=== PATIENT | male | born 1950 | race Caucasian/White ===

== ENCOUNTER 2020-01-26 20:13 | Inpatient (IN) ==
[2020-01-26 21:08] LABS: Basophils % 0.1 %; Hematocrit 35.5 % (37.5-50.1); Hemoglobin 12.3 g/dL (12.9-16.9); Immature Granulocytes % 0.6 % (0-4); Lymphocytes # 0.8 K/mcL (0.6-4.6); Lymphocytes % 5.3 %; Mean Corpuscular HGB Conc 34.6 g/dL (31.6-35.5); Mean Corpuscular Hemoglobin 33.2 pg (28.0-33.3); Mean Corpuscular Volume 95.9 fL (83.0-100.0); Mean Platelet Volume 9.2 fL (9.4-12.4); Monocytes # 1.3 K/mcL (0.0-1.3); Monocytes % 8.2 %; Neutrophils # 13.2 K/mcL (1.6-8.9); Platelet Count 305 K/mcL (140-400); Red Cell Distribution Width 12.9 % (11.5-14.5); Segmented Neutrophils % 85.8 %; White Blood Count 15.4 K/mcL (4.3-11.1)
[2020-01-26 21:11] LABS: INR 1.1
[2020-01-26 21:26] LABS: Albumin 3.9 g/dL (3.5-5.7); Albumin/Globulin Ratio 1.6 (1.1-2.2); Bilirubin,Total 1.2 mg/dL (0.3-1.0); Calcium 8.6 mg/dL (8.6-10.3); Globulin 2.5 g/dL (2.4-3.5); Total Protein 6.4 g/dL (6.4-8.9)
[2020-01-26] MEDS ORDERED: Azithromycin 500 MG in 0.9 % Sodium Chloride 250 ML IVPB ONE (23:31)
[2020-01-26] MEDS ORDERED: cefTRIAXone 1,000 MG in Water for inj. (sterile) 10 ML IVP ONE (23:31)
[2020-01-27 00:04] LABS: Adenovirus Not Detected (Not Detect); Bordetella Pertussis Not Detected (Not Detect); Chlamydophila pneumoniae Not Detected (Not Detect); Coronavirus 229E Not Detected (Not Detect); Coronavirus HKU1 Not Detected (Not Detect); Coronavirus NL63 Not Detected (Not Detect); Coronavirus OC43 Not Detected (Not Detect); Human Metapneumovirus Not Detected (Not Detect); Human Rhinovirus/Enterovirus Not Detected (Not Detect); Influenza A Subtype 2009 H1 Not Detected (Not Detect); Influenza B Not Detected (Not Detect); Mycoplasma pneumoniae Not Detected (Not Detect); Parainfluenza Virus 1 Not Detected (Not Detect); Parainfluenza Virus 2 Not Detected (Not Detect); Parainfluenza Virus 3 Not Detected (Not Detect); Parainfluenza Virus 4 Not Detected (Not Detect); Respiratory Syncytial Virus Not Detected (Not Detect); SARS-CoV-2 Not Detected (Not Detect)
[2020-01-27] MEDS ORDERED: Acetaminophen 325 MG TABLET PO PRN (00:58)
[2020-01-27] MEDS ORDERED: Naloxone 0.4 MG/ML INJ IVP PRN ×2 (00:58→19:52)
[2020-01-27] MEDS ORDERED: Ondansetron ODT 4 MG TAB.RAPDIS SL PRN ×2 (00:58→19:52)
[2020-01-27] MEDS ORDERED: 0.9 % Sodium Chloride 1,000 ML IVC SCH ×2 (01:00→19:52)
[2020-01-27] MEDS ORDERED: *HR* HYDROmorphone (PF) 1 MG/ML SYRINGE IVP PRN ×2 (01:04→19:52)
[2020-01-27 02:21] LABS: Basophils % 0.2 %; Hematocrit 31.6 % (37.5-50.1); Hemoglobin 10.8 g/dL (12.9-16.9); Immature Granulocytes % 0.5 % (0-4); Lymphocytes # 1.2 K/mcL (0.6-4.6); Lymphocytes % 9.1 %; Mean Corpuscular HGB Conc 34.2 g/dL (31.6-35.5); Mean Corpuscular Hemoglobin 32.9 pg (28.0-33.3); Mean Corpuscular Volume 96.3 fL (83.0-100.0); Mean Platelet Volume 9.2 fL (9.4-12.4); Monocytes # 1.5 K/mcL (0.0-1.3); Monocytes % 11.6 %; Platelet Count 269 K/mcL (140-400); Red Blood Count 3.28 M/mcL (4.19-5.50); Red Cell Distribution Width 12.9 % (11.5-14.5); Segmented Neutrophils % 78.6 %; White Blood Count 12.7 K/mcL (4.3-11.1)
[2020-01-27 02:27] LABS: INR 1.2; Prothrombin Time 13.5 Seconds (9.4-12.1)
[2020-01-27 02:41] LABS: Calcium 8.3 mg/dL (8.6-10.3); Magnesium 1.6 mg/dL (1.6-2.6); Phosphorous 3.1 mg/dL (2.7-4.5); Potassium 3.7 mEq/L (3.5-5.1)
[2020-01-27] MEDS: Ipratropium/Albuterol Neb 3 ML IH SCH ×5 (06:31→20:26)
[2020-01-27] MEDS ORDERED: Azithromycin 500 MG in 0.9 % Sodium Chloride 250 ML IVPB SCH (09:00)
[2020-01-27] MEDS ORDERED: amLODIPine 5 MG TABLET PO SCH (09:00)
[2020-01-27] MEDS ORDERED: NON-FORMULARY MEDICATION 1 EACH EACH (Amlodipine Besylate 10 MG) PO SCH (09:00)
[2020-01-27] MEDS ORDERED: Metoprolol XL (24 HR) Succ 50 MG TAB.ER.24H PO SCH (09:00)
[2020-01-27] MEDS ORDERED: cefTRIAXone 1,000 MG in 0.9 % Sodium Chloride Mini Bag 100 ML IVPB SCH (09:00)
[2020-01-27] MEDS ORDERED: *HR* LORazepam 2 MG/ML VIAL IVP ONE (09:49)
[2020-01-27] MEDS ORDERED: Lidocaine -MPF 2% 2 ML VIAL ONE (16:32)
[2020-01-27] MEDS ORDERED: Ondansetron 4 MG/2 ML VIAL ONE (16:32)
[2020-01-27] MEDS ORDERED: Dexamethasone 4 MG/ML VIAL ONE (16:32)
[2020-01-27] MEDS ORDERED: *HR* Propofol 200 MG/20 ML VIAL IVP ONE (16:32)
[2020-01-27] MEDS ORDERED: *HR* FentaNYL (PF) 100 MCG/2 ML VIAL ONE ×2 (16:32→17:56)
[2020-01-27] MEDS ORDERED: Famotidine 20 MG/2 ML VIAL ONE (16:58)
[2020-01-27] MEDS ORDERED: Acetaminophen IV 1,000 MG/100 ML INFUS..BTL ONE (16:58)
[2020-01-27] MEDS ORDERED: EPHEDrine 50 MG/ML VIAL ONE (17:38)
[2020-01-27] MEDS ORDERED: *HR* PHENYLEPHRINE 1,000 MCG/10 ML SYRINGE IVP ONE (18:02)
[2020-01-27] MEDS ORDERED: *HR* HYDROMORPHONE 2 MG/ML VIAL ONE (18:03)
[2020-01-28] MEDS: CeFAZolin 2 GM/120 ML BAG IVPB SCH ×2 (00:21→08:59)
[2020-01-28] MEDS: Ipratropium/Albuterol Neb 3 ML IH SCH ×8 (00:22→23:20)
[2020-01-28 03:39] LABS: Hematocrit 28.6 % (37.5-50.1); Hemoglobin 9.5 g/dL (12.9-16.9); Mean Corpuscular HGB Conc 33.2 g/dL (31.6-35.5); Mean Corpuscular Hemoglobin 32.5 pg (28.0-33.3); Mean Corpuscular Volume 97.9 fL (83.0-100.0); Mean Platelet Volume 9.4 fL (9.4-12.4); Platelet Count 232 K/mcL (140-400); Red Blood Count 2.92 M/mcL (4.19-5.50); Red Cell Distribution Width 13.1 % (11.5-14.5); White Blood Count 11.6 K/mcL (4.3-11.1)
[2020-01-28 03:59] LABS: BUN/Creatinine Ratio 17 (6-26); Blood Urea Nitrogen 23 mg/dL (8-23); Calcium 8.2 mg/dL (8.6-10.3); Carbon Dioxide 17 mEq/L (23-29); Chloride 105 mEq/L (98-107); Glucose 318 mg/dL (70-105); Magnesium 1.6 mg/dL (1.6-2.6); Osmolality,Calculated 288 (280-300); Potassium 3.6 mEq/L (3.5-5.1); Sodium 131 mEq/L (136-145); eGFR For African Americans > 60 (> 60); eGFR For Non-African Americans 53 (> 60)
[2020-01-28] MEDS ORDERED: *HR* Dextrose 50 % in Water (Vial) 50 ML VIAL IVP PRN (06:58)
[2020-01-28] MEDS ORDERED: Dextrose Gel 15 GM/37.5 ML TUBE PO PRN ×2 (06:58)
[2020-01-28] MEDS ORDERED: D5% in Water 1,000 ML IVC PRN (06:58)
[2020-01-28] MEDS ORDERED: GlipiZIDE 5 MG TABLET PO SCH (08:00)
[2020-01-28] MEDS: cefTRIAXone 1,000 MG in 0.9 % Sodium Chloride Mini Bag 100 ML IVPB SCH (08:59)
[2020-01-28] MEDS ORDERED: Azithromycin 500 MG in 0.9 % Sodium Chloride 250 ML IVPB SCH (09:00)
[2020-01-28] MEDS: amLODIPine 5 MG TABLET PO SCH (09:01)
[2020-01-28] MEDS: Metoprolol XL (24 HR) Succ 50 MG TAB.ER.24H PO SCH (09:02)
[2020-01-28] MEDS: Insulin LISPRO 300 UNITS/3 ML VIAL SQ SCH ×4 (09:07→23:14)
[2020-01-28] MEDS: Haloperidol Lactate 5 MG/ML VIAL IVP ONE (14:47)
[2020-01-28] MEDS ORDERED: Insulin DETEMIR 100 UNIT/ML X5UNITS SQ SCH (21:00)
[2020-01-28] MEDS: Acetaminophen 325 MG TABLET PO PRN (23:13)
[2020-01-29] MEDS ORDERED: 0.9 % Sodium Chloride 500 ML IVC ONE (02:08)
[2020-01-29] MEDS: Ipratropium/Albuterol Neb 3 ML IH SCH ×6 (03:21→20:25)
[2020-01-29 09:24] LABS: Basophils % 0.1 %; Eosinophils % 0.1 %; Hematocrit 26.8 % (37.5-50.1); Immature Granulocytes % 0.8 % (0-4); Lymphocytes # 2.1 K/mcL (0.6-4.6); Mean Corpuscular HGB Conc 33.6 g/dL (31.6-35.5); Mean Corpuscular Hemoglobin 33.3 pg (28.0-33.3); Mean Corpuscular Volume 99.3 fL (83.0-100.0); Mean Platelet Volume 9.4 fL (9.4-12.4); Monocytes # 1.4 K/mcL (0.0-1.3); Monocytes % 8.9 %; Neutrophils # 11.5 K/mcL (1.6-8.9); Platelet Count 267 K/mcL (140-400); Red Cell Distribution Width 13.5 % (11.5-14.5); Segmented Neutrophils % 76.1 %; White Blood Count 15.1 K/mcL (4.3-11.1)
[2020-01-29 09:37] LABS: BUN/Creatinine Ratio 20 (6-26); Blood Urea Nitrogen 27 mg/dL (8-23); Calcium 8.3 mg/dL (8.6-10.3); Carbon Dioxide 20 mEq/L (23-29); Chloride 106 mEq/L (98-107); Glucose 132 mg/dL (70-105); Magnesium 1.8 mg/dL (1.6-2.6); Osmolality,Calculated 287 (280-300); Potassium 3.6 mEq/L (3.5-5.1); Sodium 135 mEq/L (136-145); eGFR For African Americans > 60 (> 60); eGFR For Non-African Americans 53 (> 60)
[2020-01-29] MEDS: cefTRIAXone 1,000 MG in 0.9 % Sodium Chloride Mini Bag 100 ML IVPB SCH (10:11)
[2020-01-29] MEDS: amLODIPine 5 MG TABLET PO SCH (10:12)
[2020-01-29] MEDS: Metoprolol XL (24 HR) Succ 50 MG TAB.ER.24H PO SCH (10:12)
[2020-01-29] MEDS: Insulin LISPRO 300 UNITS/3 ML VIAL SQ SCH ×4 (10:25→21:05)
[2020-01-29] MEDS ORDERED: *HR* Digoxin 0.5 MG/2 ML AMPUL IVP ONE (11:52)
[2020-01-29] MEDS ORDERED: Haloperidol Lactate 5 MG/ML VIAL IVP ONE (14:56)
[2020-01-29] MEDS: *HR* Metoprolol 5 MG/5 ML VIAL IVP PRN (17:38)
[2020-01-29] MEDS: Haloperidol Lactate 5 MG/ML VIAL IVP ONE (17:40)
[2020-01-30] MEDS: Ipratropium/Albuterol Neb 3 ML IH SCH ×6 (00:42→19:57)
[2020-01-30] MEDS: *HR* Metoprolol 5 MG/5 ML VIAL IVP PRN ×2 (01:07→09:20)
[2020-01-30 04:15] LABS: Basophils % 0.3 %; Eosinophils # 0.1 K/mcL (0.0-0.6); Eosinophils % 0.8 %; Hematocrit 26.2 % (37.5-50.1); Hemoglobin 8.9 g/dL (12.9-16.9); Lymphocytes # 2.6 K/mcL (0.6-4.6); Lymphocytes % 22.1 %; Mean Corpuscular Hemoglobin 33.5 pg (28.0-33.3); Mean Corpuscular Volume 98.5 fL (83.0-100.0); Mean Platelet Volume 9.3 fL (9.4-12.4); Monocytes % 8.8 %; Neutrophils # 7.8 K/mcL (1.6-8.9); Platelet Count 263 K/mcL (140-400); Red Blood Count 2.66 M/mcL (4.19-5.50); Red Cell Distribution Width 13.3 % (11.5-14.5); White Blood Count 11.7 K/mcL (4.3-11.1)
[2020-01-30 04:32] LABS: BUN/Creatinine Ratio 20 (6-26); Blood Urea Nitrogen 24 mg/dL (8-23); Calcium 7.7 mg/dL (8.6-10.3); Carbon Dioxide 20 mEq/L (23-29); Chloride 104 mEq/L (98-107); Glucose 175 mg/dL (70-105); Magnesium 1.7 mg/dL (1.6-2.6); Osmolality,Calculated 282 (280-300); Phosphorous 2.6 mg/dL (2.7-4.5); Potassium 3.8 mEq/L (3.5-5.1); Sodium 132 mEq/L (136-145); eGFR For African Americans > 60 (> 60); eGFR For Non-African Americans 58 (> 60)
[2020-01-30] MEDS ORDERED: *HR* Metoprolol 5 MG/5 ML VIAL IVP ONE (05:18)
[2020-01-30] MEDS: cefTRIAXone 1,000 MG in 0.9 % Sodium Chloride Mini Bag 100 ML IVPB SCH (08:21)
[2020-01-30] MEDS: Metoprolol XL (24 HR) Succ 50 MG TAB.ER.24H PO SCH (08:22)
[2020-01-30] MEDS: Insulin LISPRO 300 UNITS/3 ML VIAL SQ SCH ×4 (08:23→22:36)
[2020-01-30 10:47] LABS: Estimated Average Glucose 192 mg/dl
[2020-01-30] MEDS ORDERED: DilTIAZem CD (24hr) 120 MG CAP.ER.24H PO ONE (11:12)
[2020-01-30] MEDS: Nicotine 21 MG PATCH.TD24 TD SCH (13:30)
[2020-01-30] MEDS ORDERED: Haloperidol Lactate 5 MG/ML VIAL IVP ONE (14:33)
[2020-01-30] MEDS: Acetaminophen 325 MG TABLET PO PRN (17:19)
[2020-01-30] MEDS: Aspirin Enteric Coated 325 MG Tablet PO SCH (22:44)
[2020-01-31] MEDS: Ipratropium/Albuterol Neb 3 ML IH SCH ×4 (00:14→11:18)
[2020-01-31] MEDS: Aspirin Enteric Coated 325 MG Tablet PO SCH (09:12)
[2020-01-31] MEDS: Metoprolol XL (24 HR) Succ 50 MG TAB.ER.24H PO SCH (09:13)
[2020-01-31] MEDS: Nicotine 21 MG PATCH.TD24 TD SCH (09:13)
[2020-01-31] MEDS: Insulin LISPRO 300 UNITS/3 ML VIAL SQ SCH (09:17)
[2020-01-31 11:11] VITALS: BP 105/71
== END 2020-01-31 11:45 | disposition home health service (06) | DRG 853 ==
LOC: 3NENU 20:13 → EMEROOARM 20:13 → SUATTDRO 23:52 → 3NENU 01-27 00:40 → SUATTDRO 01-27 14:41
PROVIDERS: ADMIT Internal Medicine; ATTEND Internal Medicine

== ENCOUNTER 2021-11-01 15:27 | Inpatient (IN) ==
[2021-11-01] MEDS ORDERED: 0.9 % Sodium Chloride 500 ML IVC ONE (15:47)
[2021-11-01 16:27] LABS: Basophils % 0.2 %; Eosinophils % 0.1 %; Hematocrit 30.2 % (37.5-50.1); Lymphocytes % 4.8 %; Mean Corpuscular HGB Conc 36.4 g/dL (31.6-35.5); Mean Corpuscular Hemoglobin 34.7 pg (28.0-33.3); Mean Corpuscular Volume 95.3 fL (83.0-100.0); Mean Platelet Volume 8.7 fL (9.4-12.4); Monocytes # 1.4 K/mcL (0.0-1.3); Monocytes % 6.5 %; Neutrophils # 18.8 K/mcL (1.6-8.9); Platelet Count 308 K/mcL (140-400); Red Blood Count 3.17 M/mcL (4.19-5.50); Red Cell Distribution Width 12.6 % (11.5-14.5); Segmented Neutrophils % 87.4 %; White Blood Count 21.5 K/mcL (4.3-11.1)
[2021-11-01 16:38] LABS: INR 1.3
[2021-11-01 16:55] LABS: BUN/Creatinine Ratio 16 (6-26); Blood Urea Nitrogen 21 mg/dL (8-23); Calcium 8.7 mg/dL (8.6-10.3); Carbon Dioxide 20 mEq/L (23-29); Chloride 96 mEq/L (98-107); Glucose 224 mg/dL (70-105); Osmolality,Calculated 268 (280-300); Potassium 4.5 mEq/L (3.5-5.1); Sodium 124 mEq/L (136-145); Troponin I < 0.03 ng/mL (< 0.04)
[2021-11-01] MEDS ORDERED: Ondansetron 4 MG/2 ML VIAL IVP PRN (17:28)
[2021-11-01] MEDS ORDERED: Naloxone 0.4 MG/ML INJ IVP PRN (17:28)
[2021-11-01] MEDS ORDERED: Acetaminophen 325 MG TABLET PO PRN (17:28)
[2021-11-01] MEDS ORDERED: *HR* HYDROcodone/Acet 5/325 mg TABLET PO PRN (17:28)
[2021-11-01] MEDS ORDERED: D5% in Water 1,000 ML IVC PRN (17:32)
[2021-11-01] MEDS ORDERED: *HR* Dextrose 50 % in Water (Syg) 50 ML SYRINGE IVP PRN (17:32)
[2021-11-01] MEDS ORDERED: Dextrose Gel 15 GM/37.5 ML TUBE PO PRN ×2 (17:32)
[2021-11-01 18:01] LABS: Bilirubin,Urine Negative (Negative); Blood,Urine Negative (Negative); Clarity,Urine Clear (Clear); Color,Urine Yellow (Yellow); Glucose,Urine (UA) >=1000 mg/dL (Normal); Hyaline Casts,Urine Few per lpf (None Seen); Ketones,Urine Negative (Negative); Leukocyte Esterase,Urine Negative (Negative); Mucus,Urine Few per lpf (None-Few); Nitrite,Urine Negative (Negative); PH,Urine 6.5 pH Units (5.0-8.0); Protein,Urine 50 mg/dL (Neg-Trace); RBC,Urine 0-3 per hpf (0-3); Specific Gravity,Urine 1.014 (1.010-1.025); Urobilinogen,Urine Normal (Normal); WBC,Urine 0-3 per hpf (0-3)
[2021-11-01] MEDS: Insulin LISPRO 300 UNITS/3 ML VIAL SUBQ SCH ×2 (22:27→23:34)
[2021-11-02 06:38] LABS: Basophils % 0.1 %; Hematocrit 27.6 % (37.5-50.1); Hemoglobin 9.9 g/dL (12.9-16.9); Immature Granulocytes % 0.7 % (0-4); Lymphocytes # 1.5 K/mcL (0.6-4.6); Lymphocytes % 9.5 %; Mean Corpuscular HGB Conc 35.9 g/dL (31.6-35.5); Mean Corpuscular Hemoglobin 34.1 pg (28.0-33.3); Mean Corpuscular Volume 95.2 fL (83.0-100.0); Monocytes # 1.7 K/mcL (0.0-1.3); Monocytes % 10.6 %; Neutrophils # 12.8 K/mcL (1.6-8.9); Platelet Count 257 K/mcL (140-400); Red Cell Distribution Width 12.7 % (11.5-14.5); Segmented Neutrophils % 79.1 %; White Blood Count 16.2 K/mcL (4.3-11.1)
[2021-11-02 07:12] LABS: Calcium 8.6 mg/dL (8.6-10.3); Magnesium 1.1 mg/dL (1.6-2.6); Potassium 4.3 mEq/L (3.5-5.1)
[2021-11-02] MEDS: Insulin LISPRO 300 UNITS/3 ML VIAL SUBQ SCH ×4 (08:56→21:44)
[2021-11-02] MEDS ORDERED: CeFAZolin Syr 2,000MG/20 ML 2,000 MG/20 ML SYRINGE IVPB ONE (10:30)
[2021-11-02] MEDS: 0.9 % Sodium Chloride 1,000 ML IVC SCH (10:52)
[2021-11-02 12:01] LABS: Estimated Average Glucose 154 mg/dl
[2021-11-02] MEDS ORDERED: *HR* HYDROmorphone PF 0.5 MG/0.5 ML SYRINGE IVP PRN (12:05)
[2021-11-02] MEDS ORDERED: Albuterol 2.5 MG/3 ML NEBULIZER IH PRN (12:05)
[2021-11-02] MEDS ORDERED: Ondansetron 4 MG/2 ML VIAL IVP PRN (12:05)
[2021-11-02] MEDS ORDERED: *HR* FentaNYL (PF) 100 MCG/2 ML VIAL IVP PRN (12:05)
[2021-11-02] MEDS ORDERED: Albuterol 2.5 MG/3 ML NEBULIZER IH ONE (12:11)
[2021-11-02] MEDS ORDERED: Ropivacaine/PF 0.5% 30 ML VIAL ONE (12:11)
[2021-11-02] MEDS ORDERED: *HR* FentaNYL (PF) 100 MCG/2 ML VIAL ONE ×2 (12:12→12:49)
[2021-11-02] MEDS ORDERED: *HR* Propofol 200 MG/20 ML VIAL IVP ONE (12:49)
[2021-11-02] MEDS ORDERED: Ondansetron 4 MG/2 ML VIAL ONE (12:49)
[2021-11-02] MEDS ORDERED: Lidocaine -MPF 2% 5 ML VIAL ONE (12:49)
[2021-11-02] MEDS ORDERED: EPHEDrine 50 MG/ML VIAL ONE (13:22)
[2021-11-02] MEDS ORDERED: *HR* Vasopressin 20 UNIT/ML VIAL ONE (13:29)
[2021-11-02] MEDS ORDERED: *HR* Metoprolol 5 MG/5 ML VIAL IVP PRN ×2 (15:03→16:00)
[2021-11-02] MEDS ORDERED: ceFAZolin 1,000 MG in Water for inj. (sterile) 10 ML IVP SCH (16:00)
[2021-11-02] MEDS: Apixaban 5 MG TABLET PO SCH (21:42)
[2021-11-02] MEDS: Insulin DETEMIR 100 UNIT/ML X5UNITS SUBQ SCH (21:43)
[2021-11-03] MEDS: *HR* Water for inj. (sterile) Vial 10 ML IM SCH ×3 (04:22→21:57)
[2021-11-03] MEDS ORDERED: *HR* LORazepam 2 MG/ML VIAL IM STA (05:19)
[2021-11-03 05:50] LABS: Basophils % 0.1 %; Hematocrit 22.5 % (37.5-50.1); Immature Granulocytes % 0.6 % (0-4); Lymphocytes # 0.9 K/mcL (0.6-4.6); Lymphocytes % 5.3 %; Mean Corpuscular HGB Conc 35.1 g/dL (31.6-35.5); Mean Corpuscular Hemoglobin 33.9 pg (28.0-33.3); Mean Corpuscular Volume 96.6 fL (83.0-100.0); Mean Platelet Volume 9.2 fL (9.4-12.4); Monocytes # 1.9 K/mcL (0.0-1.3); Neutrophils # 13.3 K/mcL (1.6-8.9); Platelet Count 236 K/mcL (140-400); Red Blood Count 2.33 M/mcL (4.19-5.50); Red Cell Distribution Width 12.9 % (11.5-14.5); White Blood Count 16.2 K/mcL (4.3-11.1)
[2021-11-03 05:51] LABS: Hemoglobin 7.9 g/dL (12.9-16.9)
[2021-11-03 06:11] LABS: Calcium 8.3 mg/dL (8.6-10.3); Potassium 4.1 mEq/L (3.5-5.1)
[2021-11-03] MEDS ORDERED: Ringers Solution, Lactated 500 ML IVC ONE (06:15)
[2021-11-03 06:26] LABS: Magnesium 1.6 mg/dL (1.6-2.6)
[2021-11-03] MEDS ORDERED: Metoprolol XL (24 HR) Succ 50 MG TAB.ER.24H PO SCH (09:00)
[2021-11-03] MEDS: Apixaban 5 MG TABLET PO SCH ×2 (09:02→23:17)
[2021-11-03] MEDS: amLODIPine 5 MG TABLET PO SCH (09:04)
[2021-11-03] MEDS: Cholecalciferol (D-3) 1,000 UNIT (25MCG) TABLET PO SCH (09:05)
[2021-11-03] MEDS: Insulin LISPRO 300 UNITS/3 ML VIAL SUBQ SCH ×6 (09:18→17:27)
[2021-11-03] MEDS ORDERED: *HR* Digoxin 0.5 MG/2 ML AMPUL IVP ONE (10:06)
[2021-11-03] MEDS: DilTIAZem 50 MG/50 ML IV.SOLN IVC SCH ×3 (11:02→23:11)
[2021-11-03] MEDS: Insulin DETEMIR 100 UNIT/ML X5UNITS SUBQ SCH ×2 (11:53→23:01)
[2021-11-03] MEDS ORDERED: ceFAZolin 1,000 MG in Water for inj. (sterile) 10 ML IVP SCH (12:00)
[2021-11-03] MEDS: 0.9 % Sodium Chloride 1,000 ML IVC SCH (14:30)
[2021-11-03] MEDS ORDERED: Insulin DETEMIR 100 UNIT/ML X5UNITS SUBQ ONE (22:15)
[2021-11-03] MEDS: QUEtiapine Fumarate 25 MG TABLET PO SCH (23:17)
[2021-11-04 04:35] LABS: Basophils % 0.1 %; Eosinophils # 0.1 K/mcL (0.0-0.6); Eosinophils % 0.5 %; Hematocrit 18.8 % (37.5-50.1); Hemoglobin 6.6 g/dL (12.9-16.9); Immature Granulocytes % 0.6 % (0-4); Lymphocytes # 1.8 K/mcL (0.6-4.6); Lymphocytes % 15.5 %; Mean Corpuscular HGB Conc 35.1 g/dL (31.6-35.5); Mean Corpuscular Hemoglobin 33.7 pg (28.0-33.3); Mean Corpuscular Volume 95.9 fL (83.0-100.0); Mean Platelet Volume 9.3 fL (9.4-12.4); Monocytes # 1.4 K/mcL (0.0-1.3); Monocytes % 12.1 %; Neutrophils # 8.2 K/mcL (1.6-8.9); Platelet Count 207 K/mcL (140-400); Red Blood Count 1.96 M/mcL (4.19-5.50); Red Cell Distribution Width 13.1 % (11.5-14.5); Segmented Neutrophils % 71.2 %; White Blood Count 11.5 K/mcL (4.3-11.1)
[2021-11-04 04:51] LABS: Magnesium 1.8 mg/dL (1.6-2.6); Phosphorous 2.1 mg/dL (2.7-4.5); Potassium 4.1 mEq/L (3.5-5.1)
[2021-11-04] MEDS: *HR* Water for inj. (sterile) Vial 10 ML IM SCH ×3 (05:13→20:35)
[2021-11-04] MEDS ORDERED: 0.9 % Sodium Chloride 250 ML IVC SCH (07:30)
[2021-11-04] MEDS: Insulin LISPRO 300 UNITS/3 ML VIAL SUBQ SCH ×6 (07:54→15:23)
[2021-11-04] MEDS: amLODIPine 5 MG TABLET PO SCH (07:56)
[2021-11-04] MEDS: Insulin DETEMIR 100 UNIT/ML X5UNITS SUBQ SCH (07:56)
[2021-11-04] MEDS: Cholecalciferol (D-3) 1,000 UNIT (25MCG) TABLET PO SCH (07:57)
[2021-11-04] MEDS: Metoprolol XL (24 HR) Succ 50 MG TAB.ER.24H PO SCH (07:57)
[2021-11-04] MEDS: DilTIAZem 50 MG/50 ML IV.SOLN IVC SCH ×2 (08:19→15:19)
[2021-11-04] MEDS ORDERED: Iopamidol - 370 500 ML MLS IVP ONE (10:40)
[2021-11-04] MEDS: DilTIAZem SR (12hr) 60 MG CAP.ER.12H PO SCH ×2 (11:23→20:38)
[2021-11-04] MEDS: Magnesium Oxide 400 MG TABLET PO SCH ×2 (11:23→20:38)
[2021-11-04 18:04] LABS: Hematocrit 20.8 % (37.5-50.1); Hemoglobin 7.3 g/dL (12.9-16.9)
[2021-11-04] MEDS: QUEtiapine Fumarate 25 MG TABLET PO SCH (20:38)
[2021-11-04] MEDS ORDERED: Insulin DETEMIR 100 UNIT/ML X5UNITS SUBQ SCH (21:00)
[2021-11-04] MEDS ORDERED: *HR* LORazepam 2 MG/ML VIAL IVP ONE (22:55)
[2021-11-05] MEDS: *HR* OxyCODONE Immed Rel 5 MG TABLET PO PRN ×2 (00:14→21:48)
[2021-11-05] MEDS: *HR* Water for inj. (sterile) Vial 10 ML IM SCH ×2 (05:30→14:08)
[2021-11-05 07:14] LABS: Basophils % 0.2 %; Eosinophils # 0.2 K/mcL (0.0-0.6); Eosinophils % 1.9 %; Hematocrit 22.7 % (37.5-50.1); Immature Granulocytes % 0.7 % (0-4); Lymphocytes # 2.3 K/mcL (0.6-4.6); Lymphocytes % 21.5 %; Mean Corpuscular HGB Conc 35.2 g/dL (31.6-35.5); Mean Corpuscular Hemoglobin 33.9 pg (28.0-33.3); Mean Corpuscular Volume 96.2 fL (83.0-100.0); Mean Platelet Volume 8.7 fL (9.4-12.4); Monocytes % 9.6 %; Neutrophils # 6.9 K/mcL (1.6-8.9); Platelet Count 202 K/mcL (140-400); Red Blood Count 2.36 M/mcL (4.19-5.50); Red Cell Distribution Width 13.7 % (11.5-14.5); Segmented Neutrophils % 66.1 %; White Blood Count 10.5 K/mcL (4.3-11.1)
[2021-11-05 07:33] LABS: Calcium 8.2 mg/dL (8.6-10.3); Magnesium 1.7 mg/dL (1.6-2.6); Phosphorous 2.7 mg/dL (2.7-4.5); Potassium 3.7 mEq/L (3.5-5.1)
[2021-11-05] MEDS: Metoprolol XL (24 HR) Succ 50 MG TAB.ER.24H PO SCH (07:59)
[2021-11-05] MEDS: Cholecalciferol (D-3) 1,000 UNIT (25MCG) TABLET PO SCH (07:59)
[2021-11-05] MEDS: Magnesium Oxide 400 MG TABLET PO SCH ×2 (07:59→21:50)
[2021-11-05] MEDS: DilTIAZem SR (12hr) 60 MG CAP.ER.12H PO SCH ×2 (07:59→21:48)
[2021-11-05] MEDS: amLODIPine 5 MG TABLET PO SCH (08:00)
[2021-11-05] MEDS: Insulin LISPRO 300 UNITS/3 ML VIAL SUBQ SCH ×3 (08:02→18:14)
[2021-11-05] MEDS: QUEtiapine Fumarate 25 MG TABLET PO SCH (21:50)
[2021-11-05] MEDS: Apixaban 5 MG TABLET PO SCH (21:51)
[2021-11-06 03:40] VITALS: O2SAT 96
[2021-11-06] MEDS: *HR* Water for inj. (sterile) Vial 10 ML IM SCH (06:14)
[2021-11-06 08:17] LABS: Basophils % 0.3 %; Eosinophils # 0.3 K/mcL (0.0-0.6); Eosinophils % 3.1 %; Hematocrit 22.7 % (37.5-50.1); Hemoglobin 7.7 g/dL (12.9-16.9); Immature Granulocytes % 0.8 % (0-4); Lymphocytes # 2.1 K/mcL (0.6-4.6); Lymphocytes % 23.1 %; Mean Corpuscular HGB Conc 33.9 g/dL (31.6-35.5); Mean Corpuscular Hemoglobin 33.6 pg (28.0-33.3); Mean Corpuscular Volume 99.1 fL (83.0-100.0); Mean Platelet Volume 8.9 fL (9.4-12.4); Monocytes # 0.8 K/mcL (0.0-1.3); Neutrophils # 5.8 K/mcL (1.6-8.9); Platelet Count 239 K/mcL (140-400); Red Blood Count 2.29 M/mcL (4.19-5.50); Red Cell Distribution Width 13.7 % (11.5-14.5); Segmented Neutrophils % 63.7 %; White Blood Count 9.1 K/mcL (4.3-11.1)
[2021-11-06 08:24] LABS: Calcium 8.2 mg/dL (8.6-10.3); Magnesium 1.7 mg/dL (1.6-2.6); Phosphorous 2.8 mg/dL (2.7-4.5); Potassium 4.4 mEq/L (3.5-5.1)
[2021-11-06 08:25] LABS: % Iron Saturation 6 % (20-55); Iron 14 mcg/dL (65-175); Transferrin 163 mg/dL (203-362)
[2021-11-06] MEDS: Metoprolol XL (24 HR) Succ 50 MG TAB.ER.24H PO SCH (08:55)
[2021-11-06] MEDS: Cholecalciferol (D-3) 1,000 UNIT (25MCG) TABLET PO SCH (08:55)
[2021-11-06] MEDS: DilTIAZem SR (12hr) 60 MG CAP.ER.12H PO SCH (08:55)
[2021-11-06] MEDS: Apixaban 5 MG TABLET PO SCH ×2 (08:57→09:17)
[2021-11-06] MEDS: Magnesium Oxide 400 MG TABLET PO SCH (08:58)
[2021-11-06] MEDS: Insulin LISPRO 300 UNITS/3 ML VIAL SUBQ SCH ×2 (08:59→12:37)
[2021-11-06 10:22] VITALS: PULSE 105; TEMP 98.4
[2021-11-06 10:23] VITALS: BP 130/68
== END 2021-11-06 11:45 | disposition home health service (06) | DRG 481 ==
LOC: EMEROOARM 15:27 → 4WAOSI 21:02 → SUATTDRO 21:02 → 4WAOSI 21:09
PROVIDERS: ADMIT Pharmacist; ATTEND Internal Medicine